=== PATIENT | male | born 1965 | race Caucasian/White ===

== ENCOUNTER 2017-03-27 17:22 | Emergency (ER) | payer OTHER ==
[~2017-03-27] VITALS: Ht 188 cm; Wt 117.2 kg
[~2017-03-27 17:22] MED LIST: ASPIR-LOW81 MG PO; ATORVASTATIN CA20 MG PO; BREATHE RIGHT1 EACH TP; CIPRO500 MG PO; CLARITIN10 M3 PO; COLACE50 MG PO; FLAGYL500 MG PO; LISINOPRIL10 MG PO; PERCOCET 5/31 TABLET PO; VISINE ADVANCED15 ML BOTH EYES; XOPENEX HF200 INHALA IH
[2017-03-27 18:12] LABS: HEMATOCRIT 44.3 % (38.0-50.0); MCH 31.4 PG (29.0-34.0); MCHC 33.4 G/DL (30.0-36.0); MCV 94.1 FL (86-99); MEAN PLAT.VOLUME 10.3 uM^3 (9.0-12.4); PLATELET COUNT 403 K/uL (156-360); RBC DIS.WIDTH-CV 13.1 % (11.8-14.6); RBC DIS.WIDTH-SD 44.9 % (39-53); RED BLOOD COUNT 4.71 M/uL (4.00-5.50); WHITE BLOOD COUNT 15.3 K/uL (4.1-10.2)
[2017-03-27 18:19] LABS: CHLORIDE 103 mEq/L (99-109); POTASSIUM 3.9 mEq/L (3.7-5.4); SODIUM 138 mEq/L (136-147)
[2017-03-27 18:21] LABS: GLUCOSE 101 mg/dL (70-99)
[2017-03-27 18:23] LABS: ANION GAP 9 MEQ/L (2-14)
[2017-03-27 18:25] LABS: GFR ESTIMATE (CALCULATED) > 59 mL/min/
[2017-03-27 18:26] LABS: UREA NITROGEN (BUN) 17 mg/dL (9-23)
[2017-03-27 19:44] LABS: TROP-I INTERPRETATION NEGATIVE; TROPONIN-I < 0.01 ng/mL (0.0-0.30)
[2017-03-27] MEDS ORDERED: LEVAQUIN500 MG PO (20:00)
[2017-03-27] MEDS ORDERED: ROBITUSSIN AC,T10 ML PO (20:02)
[2017-03-27] MEDS ORDERED: PROAIR HFA8.5 GM IH (20:44)
[2017-03-27 20:57] VITALS: BP 134/81
== END 2017-03-27 21:00 | disposition home or self-care (01) ==
LOC: EME 17:22
DX: J18.9 Pneumonia, unspecified organism (principal); J02.9 Acute pharyngitis, unspecified; J45.909 Unspecified asthma, uncomplicated; I10 Essential (primary) hypertension; E78.5 Hyperlipidemia, unspecified; Z79.82 Long term (current) use of aspirin
CPT/HCPCS: 80048; 83605; 84484; 85027; 87040; 93005; 94640; 99281; 99284; J2930; J7030